=== PATIENT | female | born 1980 | race Caucasian/White ===

== ENCOUNTER 2017-06-09 14:08 | Emergency (ER) | payer MEDICAID ==
[~2017-06-09] VITALS: Wt 91.0 kg
[2017-06-09] MEDS ORDERED: KETOROLAC 30 MG INJ IM STA (16:12)
[2017-06-09] MEDS ORDERED: ONDANSETRON (ODT) 4 MG TAB ODT STA (16:12)
[2017-06-09] MEDS ORDERED: LORAZEPAM 1 MG TAB PO ONE (16:30)
[2017-06-09] MEDS ORDERED: ONDA4TAB14 PO (16:42)
[2017-06-09] MEDS ORDERED: NAPR-260 PO (16:42)
--- NOTE | 2017-06-09 19:41 | ERD ---
ER Documentation Chief Complaint Date/Time DATE: 06/09/17 TIME: 19:39 Chief Complaint HEADACHE X 3 DAYS HPI This patient is a 37-year-old female with past medical history of anxiety presenting to the emergency department with complaints of headache located to the bilateral occipital lobe area intermittently for the past 3 days. Symptoms have shown no sign of improvement. She also reports nausea. She states her pain radiates down her left arm. She denies chest pain, shortness of breath, fevers, chills, or other symptoms at this time. ROS All systems reviewed and are negative except as per history of present illness. Medications Home Meds Active Scripts Ondansetron (Ondansetron Odt) 4 Mg Tab.rapdis, 4 MG PO Q6H Y for NAUSEA AND/OR VOMITING, #10 TAB Prov:CELINA RAMSAY PA-C 06/09/17 Naproxen* (Naprosyn*) 500 Mg Tablet, 500 MG PO BID Y for PAIN AND/OR INFLAMMATION, #30 TAB Prov:CELINA RAMSAY PA-C 06/09/17 PMhx/Soc History of Surgery: Yes (Gallbladder) Anesthesia Reaction: No Hx Neurological Disorder: No Hx Respiratory Disorders: No Hx Cardiac Disorders: No Hx Psychiatric Problems: No Hx Miscellaneous Medical Probl: No Hx Alcohol Use: No Hx Substance Use: No Hx Tobacco Use: No Smoking Status: Never smoker Physical Exam Vitals Vital Signs Date Time Temp Pulse Resp B/P Pulse Ox O2 Delivery O2 Flow Rate FiO2 06/09/17 14:34 98.0 71 18 120/71 99 Physical Exam Const: Nontoxic, well-appearing female in no acute distress. Head: Atraumatic Eyes: Normal Conjunctiva ENT: Normal External Ears, Nose and Mouth. Neck: Full range of motion..~ No meningismus. Resp: Clear to auscultation bilaterally Cardio: Regular rate and rhythm, no murmurs Abd: Soft, non tender, non distended. Normal bowel sounds Skin: No petechiae or rashes Back: No midline or flank tenderness Ext: No cyanosis, or edema Neur: Awake and alert Psych: Normal Mood and Affect Results 24 hrs Current Medications Medications (Trade) Dose Ordered Sig/Toya Route PRN Reason Start Time Stop Time Status Last Admin Dose Admin Lorazepam (Ativan) 1 mg ONCE ONCE PO 06/09/17 16:30 06/09/17 16:31 DC 06/09/17 16:53 Ketorolac Tromethamine (Toradol) 30 mg ONCE STAT IM 06/09/17 16:12 06/09/17 16:14 DC 06/09/17 16:54 Ondansetron HCl (Zofran Odt) 4 mg ONCE STAT ODT 06/09/17 16:12 06/09/17 16:14 DC 06/09/17 16:53 Procedures/MDM 37-year-old female presents to the emergency department with complaints of headache and left arm pain. She does have past medical history of anxiety. She was treated in the department with Ativan, Toradol, and Zofran and is feeling much improved prior to discharge. Given her symptom of left arm pain and EKG was obtained which showed no signs of acute coronary ischemia. I have low suspicion for acute coronary syndrome, intracranial hemorrhage, CVA, TIA, sepsis, or other emergent conditions. Her symptoms are most likely secondary to a tension type headache. Since her symptoms stabilized in the department she was stable for discharge with a prescription for naproxen and Zofran with instructions to closely follow up with her primary care physician. She is to return immediately for any new or worsening symptoms. Low suspicion for life- threatening illness at time of discharge. EKG: Interpreted by ED Physician, Dr. Aakash Tobias Rate/Rhythm: Normal sinus rhythm with a rate of 73 bpm. QRS, ST, T-waves: No changes consistent w/ acute ischemia Impression: No evidence of ischemia or arrhythmia Departure Diagnosis: Primary Impression: Headache Headache type: unspecified Headache chronicity pattern: unspecified pattern Intractability: not intractable Qualified Code: R51 - Nonintractable headache, unspecified chronicity pattern, unspecified headache type Additional Impression: Nausea Condition: Fair Patient Instructions: Self-Care for Headaches, Nausea Referrals: [facility] YOU HAVE RECEIVED A MEDICAL SCREENING EXAM AND THE RESULTS INDICATE THAT YOU DO NOT HAVE A CONDITION THAT REQUIRES URGENT TREATMENT IN THE EMERGENCY DEPARTMENT. FURTHER EVALUATION AND TREATMENT OF YOUR CONDITION CAN WAIT UNTIL YOU ARE SEEN IN YOUR DOCTORS OFFICE WITHIN THE NEXT 1-2 DAYS. IT IS YOUR RESPONSIBILITY TO MAKE AN APPOINTMENT FOR FOLOW-UP CARE. IF YOU HAVE A PRIMARY DOCTOR --you should call your primary doctor and schedule an appointment IF YOU DO NOT HAVE A PRIMARY DOCTOR YOU CAN CALL OUR PHYSICIAN REFERRAL HOTLINE AT IF YOU CAN NOT AFFORD TO SEE A PHYSICIAN YOU CAN CHOSE FROM THE FOLLOWING [facility] [address] [facility] [address] [facility] [address] [facility] [address] [facility] [address] [facility]. [facility]. [address] Additional Instructions: No mas mejor en 2-3 alexis, regresar. Mas peor en 24 horas, regresear rapidamente. Ir a doctor primario in 5-7 alexis. Usar instrucciones cuando vj medicamento. CELINA RAMSAY PA-C Jun 09, 2017 19:41
== END 2017-06-09 17:56 | disposition home or self-care (01) ==
LOC: FTE 14:08
DX: R51 Headache (principal); R11.0 Nausea; M79.602 Pain in left arm
CPT/HCPCS: 93005; 96372; J1885; Z7502; Z7610